=== PATIENT | male | born 1980 | race African-American/Black ===

== ENCOUNTER → 2016-11-27 | Outpatient (CLI) | payer OTHER ==
[~2016-11-27] MED LIST: ATIVAN0.5 MG PO; CLARITIN10 MG PO; DIVALPROEX SOD500 MG PO; GLUCOPHAGE500 MG; METAMUCIL1 PKT PO; PROZAC PO; SEROQUEL PO; SEROQUEL300 M1 PO; ZOCOR20 MG PO
--- NOTE | ~2016-11-27 | CR63 ---
[facility] A Service of [facility] & [facility] RADIOLOGY TEXT RESULTS PATIENT: MINI SALCIDO LOCATION: [facility] : 78 UNIT #: [id number] AGE: [address]: GILBERT ACOSTA SEX: M ORDER DR: [id number] [facility] [address] [place], [place] [address] [id number] O MR#: [id number] Acc #: [id number] NAME: MINI SALCIDO : 1980 SEX: M STUDY DATE/TIME: 11/27/2016 14:00 UNIT: [facility] ROOM: STUDY DESCRIPTION: CR Chest 2 View Attending Physician: Gilbert Acosta M.D. Referring Physician: Gilbert Acosta M.D. Ordering Physician: Gilbert Acosta M.D. Primary Care Physician: Rosa Sutton M.D. 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 COMPARISON 11/12/2016. FINDINGS A PA and lateral view of the chest were obtained. The heart size and vascularity are normal. The lateral view is limited by patient size. There are no infiltrates visible. The bones are normal. IMPRESSION No active disease. Dictated by... Pranay Camacho M.D. THIS IS AN ELECTRONICALLY VERIFIED REPORT Pranay Camacho M.D. at 11/28/2016 7:08 AM BEATRIZ/gregor TD: 11/28/2016 02:24 JOB #: [id number] MEDICAL IMAGING REPORT Page 1 of 1 COPY
== END | disposition home or self-care (01) ==
LOC: CRAD 13:42
DX: R76.11 Nonspecific reaction to tuberculin skin test without active tuberculosis (principal)
CPT/HCPCS: 71020